=== PATIENT | female | born 1965 | race Caucasian/White ===

== ENCOUNTER 2019-07-28 15:07 | Outpatient (CLI) | payer OTHER | END 2019-07-28 15:08 | disposition short-term general hospital (02) | LOC: EMS 15:07 | PROVIDERS: ATTEND Surgery | DX: R00.0 Tachycardia, unspecified (principal); R55 Syncope and collapse; R11.0 Nausea; R61 Generalized hyperhidrosis | CPT/HCPCS: A0425; A0427 ==